=== PATIENT | female | born 1980 | race African-American/Black ===

== ENCOUNTER 2021-12-26 15:30 | Outpatient (CLI) | payer OTHER | END 2021-12-26 15:31 | disposition home or self-care (01) | LOC: CSHULT 15:30 | PROVIDERS: ATTEND Family Medicine | DX: O09.522 Supervision of elderly multigravida, second trimester (principal); Z3A.20 20 weeks gestation of pregnancy | CPT/HCPCS: 76805 ==

== ENCOUNTER 2022-05-13 18:00 | Inpatient (IN) | payer OTHER ==
[~2022-05-13 18:00] MED LIST: Bupivacaine 0.25% HCL 30 ML VIAL ONE; Bupivacaine/Epinephrine 0.25% 30 ML VIAL ONE
[2022-05-13] MEDS ORDERED: Misoprostol 200 MCG TAB PR PRN (22:55)
[2022-05-13] MEDS ORDERED: HYDROcodone/Acetaminophen 5/325 mg Tablet PO PRN (22:55)
[2022-05-13] MEDS ORDERED: Lidocaine 1% (PF) 30 ML VIAL SC PRN (22:55)
[2022-05-13] MEDS ORDERED: Diphenoxylate HCl/Atropine Tablet PO PRN (22:55)
[2022-05-13] MEDS ORDERED: Carboprost 250 MCG/ML AMP IM PRN (22:55)
[2022-05-13] MEDS ORDERED: hydrALAZINE 20 MG/ML VIAL SLOW IVP PRN (22:55)
[2022-05-13] MEDS ORDERED: Ondansetron PF 4 MG/2 ML Vial IVP PRN (22:55)
[2022-05-13] MEDS ORDERED: Misoprostol 100 MCG TAB PO SCH (22:55)
[2022-05-13] MEDS ORDERED: Ibuprofen 800 MG TAB PO PRN (22:55)
[2022-05-13] MEDS ORDERED: Promethazine HCl 25 MG/ML VIAL IM PRN (22:55)
[2022-05-13] MEDS ORDERED: Butorphanol Tartrate 1 MG/ML VIAL SLOW IVP PRN (22:55)
[2022-05-13] MEDS ORDERED: Tranexamic Acid 1,000 MG in Sodium Chloride 0.9% 250 ML 250 ML IVPB PRN (22:55)
[2022-05-13] MEDS ORDERED: Acetaminophen 500 MG TAB PO PRN (22:55)
[2022-05-13] MEDS ORDERED: Methylergonovine 0.2 MG/ML VIAL IM PRN (22:55)
[2022-05-13 23:22] VITALS: BMI 33.2
[2022-05-13] MEDS ORDERED: NS w/ Oxytocin 30 units 500 ML IV SCH ×2 (23:30)
[2022-05-13] MEDS ORDERED: Lactated Ringer's 1,000 ML IV SCH (23:30)
[2022-05-13 23:58] LABS: Hemoglobin 10.1 g/dL (12.0-15.5); Mean Corpuscular HGB CONC 33.3 g/dL (32.0-36.0); Mean Corpuscular Hemoglobin 27.6 pg (27.0-33.0); Mean Corpuscular Volume 82.8 fl (81.6-98.3); Mean Platelet Volume 10.4 fl (7.4-10.4); Platelet Count 205 10x3/uL (150-450); RBC Distribution Width 14.3 % (11.5-14.5); Red Blood Cell (RBC) Count 3.66 10x6/uL (3.90-5.03); White Blood Cell (WBC) Count 6.1 10x3/uL (3.5-10.5)
[2022-05-14] MEDS ORDERED: Calcium Carbonate 500 MG ChewTAB PO PRN (00:19)
[2022-05-14 01:23] LABS: SARS-CoV-2 NAA Rapid Test Not Detected (NotDetected)
[2022-05-14 01:50] LABS: HBSAg Index 0.16 S/CO (0-0.99); Hep B Surf Ag Non-Reactive S/CO (NonReactive)
[2022-05-14 01:51] LABS: Syphilis Antibody Nonreactive (Nonreactive); Syphilis Antibody Index 0.04 S/CO (<1.00 Non-Reactive)
[2022-05-14] MEDS ORDERED: Fentanyl 2 mcg/Bup 0.1% Cadd 100 ML ONE (07:35)
[2022-05-14] MEDS ORDERED: ePHEDrine Sulfate 50 MG/10 ML VIAL SLOW IVP PRN (10:25)
[2022-05-14] MEDS ORDERED: Ondansetron PF 4 MG/2 ML Vial IVP PRN ×2 (10:25→14:59)
[2022-05-14] MEDS ORDERED: Lactated Ringer's 500 ML IV PRN (10:25)
[2022-05-14] MEDS ORDERED: Naloxone HCl 0.4 mg/ml Vial IVP PRN ×2 (10:25)
[2022-05-14] MEDS ORDERED: Acetaminophen 325 MG TAB PO PRN (10:25)
[2022-05-14] MEDS ORDERED: diphenhydrAMINE 50 MG/ML VIAL IVP PRN (10:25)
[2022-05-14] MEDS ORDERED: Moisturizing Cream (Eucerin) 113 GM JAR TOP PRN (10:25)
[2022-05-14] MEDS ORDERED: Promethazine HCl 25 MG/ML VIAL IM PRN ×2 (10:25→14:59)
[2022-05-14] MEDS ORDERED: Communication Order-Pharmacy FS SCH (10:30)
[2022-05-14] MEDS ORDERED: Fentanyl 2 mcg/Bupivacaine 0.1% Cassette 100 ML EPIDURAL SCH (10:30)
[2022-05-14] MEDS ORDERED: Preparation H Ointment 28 GM TUBE PR PRN (14:59)
[2022-05-14] MEDS ORDERED: Lanolin Ointment 7 GM TUBE TOP PRN (14:59)
[2022-05-14] MEDS ORDERED: Milk Of Magnesia 30 ML UDCUP PO PRN (14:59)
[2022-05-14] MEDS ORDERED: hydrALAZINE 20 MG/ML VIAL SLOW IVP PRN (14:59)
[2022-05-14] MEDS ORDERED: HYDROcodone/Acetaminophen 5/325 mg Tablet PO PRN (14:59)
[2022-05-14] MEDS ORDERED: Boostrix 0.5 ML (Tdap) VIAL (>/=7 yrs of age) IM ONE (14:59)
[2022-05-14] MEDS ORDERED: NS w/ Oxytocin 30 units 500 ML IV SCH (14:59)
[2022-05-14] MEDS ORDERED: Bisacodyl 10 MG SUPP PR PRN (14:59)
[2022-05-14] MEDS ORDERED: diphenhydrAMINE 25 MG CAP PO PRN (14:59)
[2022-05-14] MEDS: Ibuprofen 800 MG TAB PO SCH ×3 (15:15→22:12)
[2022-05-14] MEDS: Calcium Carbonate 500 MG ChewTAB PO PRN ×2 (16:12→21:12)
[2022-05-14] MEDS ORDERED: Ferrous Sulfate 325 MG TAB PO SCH (17:00)
[2022-05-14] MEDS: Docusate 100 MG CAP PO SCH (21:07)
[2022-05-15] MEDS: Ibuprofen 800 MG TAB PO SCH ×2 (06:01→13:50)
[2022-05-15] MEDS: Docusate 100 MG CAP PO SCH (09:55)
[2022-05-15] MEDS: Prenatal Vitamin 1 TAB PO SCH (09:55)
[2022-05-15 11:40] VITALS: BP 112/72; TEMP 97.8
== END 2022-05-15 16:40 | disposition home or self-care (01) | DRG 807 ==
LOC: CSHLD 22:46 → CSHPED 05-14 14:50
PROVIDERS: ADMIT Family Medicine; ATTEND Family Medicine
PROC: 10E0XZZ Delivery of Products of Conception, External Approach (ICD-10-PCS; principal; 2022-05-14)
DX: O99.52 Diseases of the respiratory system complicating childbirth (principal); Z37.0 Single live birth; O69.81X0 Labor and delivery complicated by cord around neck, without compression, not applicable or unspecified; J45.909 Unspecified asthma, uncomplicated; Z20.822 Contact with and (suspected) exposure to COVID-19; Z79.51 Long term (current) use of inhaled steroids; Z79.899 Other long term (current) drug therapy; Z3A.39 39 weeks gestation of pregnancy
CPT/HCPCS: 36415; 51702; 85027; 86780; 86850; 86900; 86901; 87340; J2590; S0020; U0002